=== PATIENT | female | born 1990 | race American Indian/Alaskan Native ===

== ENCOUNTER 2017-02-10 12:25 | Outpatient (CLI) | payer MEDICAID ==
[2017-02-10 12:38] VITALS: BP 122/69
== END 2017-02-10 13:36 | disposition home or self-care (01) ==
LOC: TRG 12:25
PROVIDERS: ATTEND Obstetrics & Gynecology
DX: O47.1 False labor at or after 37 completed weeks of gestation (principal); Z3A.39 39 weeks gestation of pregnancy
CPT/HCPCS: 59025

== ENCOUNTER 2017-02-11 04:03 | Inpatient (IN) | payer MEDICAID ==
[2017-02-11] MEDS ORDERED: PITOCin/NS 20 UNIT/1000ML DRIP IV ONE (05:00)
[2017-02-11] MEDS ORDERED: PITOCin/NS 30 UNIT/500ML IV ONE (05:00)
[2017-02-11] MEDS ORDERED: BOOSTRIX IM ONE (06:00)
[2017-02-11] MEDS ORDERED: STADOL IV PRN (06:16)
[2017-02-11] MEDS: LACTATED RINGERS 1,000 ML IV SCH ×3 (06:27→09:48)
[2017-02-11 07:04] LABS: Hematocrit 34.9 % (30.3-42.9); Hemoglobin 11.5 gm/dl (10.1-14.3); Mean Corpuscular HGB Conc 33 % (30-34); Mean Corpuscular Hemoglobin 27 pg (28-32); Mean Corpuscular Volume 82 fl (79-97); Platelet Count 199 K/mm3 (140-440); Red Blood Count 4.24 M/mm3 (3.65-5.03); Red Cell Distribution Width 16.3 % (13.2-15.2)
[2017-02-11] MEDS ORDERED: fentaNYL-BUPIV 2 MCG/ML-0.125% 200 MCG/100 ML BAG EPIDURAL ONE (08:42)
[2017-02-11] MEDS ORDERED: ePHEDrine SULFATE IV PRN (09:01)
[2017-02-11] MEDS ORDERED: NARCAN 2 MG/2 ML IV PRN (09:01)
--- NOTE | 2017-02-11 09:01 | Anesthesia Consultation ---
Anesthesia Consult and Med Hx Date of service: 02/11/17 - Airway Anesthetic Teeth Evaluation: Good ROM Head & Neck: Adequate Mental/Hyoid Distance: Adequate Mallampati Class: Class II Intubation Access Assessment: Probably Good - Pulmonary Exam CTA: Yes - Cardiac Exam Cardiac Exam: RRR - Pre-Operative Health Status ASA Pre-Surgery Classification: ASA2 Proposed Anesthetic Plan: Epidural - Pulmonary Hx Asthma: No COPD: No Hx Pneumonia: No - Cardiovascular System Hx Hypertension: No - Central Nervous System Hx Seizures: No Hx Psychiatric Problems: No - Endocrine Hx Renal Disease: No Hx End Stage Renal Disease: No Hx Hypothyroidism: No Hx Hyperthyroidism: No - Hematic Hx Anemia: No Hx Sickle Cell Disease: No - Other Systems Hx Alcohol Use: Yes
[2017-02-11] MEDS ORDERED: fentaNYL-BUPIV 2 MCG/ML-0.125% 200 MCG/100 ML BAG EPIDURAL SCH (10:00)
[2017-02-11] MEDS ORDERED: MINERAL OIL PO PRN (11:35)
[2017-02-11] MEDS ORDERED: XYLOCAINE 2% INFILTRATI ONE (11:35)
[2017-02-11] MEDS ORDERED: BRETHINE IVP PRN (11:39)
[2017-02-11] MEDS ORDERED: BRETHINE SUB-Q PRN (11:39)
[2017-02-11] MEDS ORDERED: PITOCin/NS 20 UNIT/1000ML DRIP 20 UNITS/1,000 ML BAG IV SCH (12:00)
[2017-02-11] MEDS ORDERED: PITOCin/NS 30 UNIT/500ML 30,000 MILLIUNITS/500 ML BAG IV ONE (12:00)
--- NOTE | 2017-02-11 14:45 | History and Physical Report ---
History of Present Illness Date of examination: 02/11/17 Date of admission: 02/11/17 05:05 Chief complaint: I'm in labor History of present illness: patient is a 26 year old who presents to L&D in active labor. She has had an uncomplicated course.She entered care at 13 weeks. Past History Past Medical History: no pertinent history Past Surgical History: no surgical history Family/Genetic History: none Social history: single - Obstetrical History Expected Date of Delivery: 02/11/17 Actual Gestation: 40 Week(s) 0 Day(s) : 1 Medications and Allergies Allergies Allergy/AdvReac Type Severity Reaction Status Date / Time No Known Allergies Allergy Unverified 02/10/17 12:39 Home Medications Medication Instructions Recorded Confirmed Last Taken Type Ferrous Sulfate [Iron] 325 mg PO DAILY 02/10/17 02/10/17 1 Day Ago History Complete Caplet 1 tab PO DAILY 02/10/17 02/10/17 1 Day Ago History Active Meds: Active Medications Butorphanol Tartrate (Stadol) 2 mg IV Q2H PRN PRN Reason: Labor Pain Last Admin: 02/11/17 07:04 Dose: 2 mg Lactated Ringer's (Lactated Ringers) 1,000 mls @ 125 mls/hr IV DIRECT JANINA Last Admin: 02/11/17 09:48 Dose: 125 mls/hr Fentanyl/Bupivacaine/Sodium Chlor (Fentanyl-Bupiv 2 Mcg/Ml-0.125%) 200 mcg in 100 mls @ 12 mls/hr EPIDURAL TITR JANINA PRN Reason: Protocol Last Admin: 02/11/17 09:24 Dose: 12 mls/hr Oxytocin/Sodium Chloride (Pitocin/Ns 30 Unit/500ml) 30,000 milliunits in 500 mls @ 4 mls/hr IV DIRECT ONE; 4 MILLIUNITS/MIN PRN Reason: Protocol Stop: 02/16/17 16:59 Last Titration: 02/11/17 13:54 Dose: 16 milliunits/min, 16 mls/hr Oxytocin/Sodium Chloride (Pitocin/Ns 20 Unit/1000ml Drip) 20 units in 1,000 mls @ 125 mls/hr IV DIRECT JANINA Mineral Oil (Mineral Oil) 30 ml PO QHS PRN PRN Reason: Constipation Review of Systems Genitourinary: leakage of fluid, contractions - Vital Signs Vital signs: Vital Signs Temp Pulse Resp BP 97.9 F 75 14 135/79 02/11/17 06:13 02/11/17 06:13 02/11/17 06:13 02/11/17 06:13 Temp Pulse Resp BP Pulse Ox 97.0 F L 106 H 18 139/83 96 02/11/17 14:15 02/11/17 14:41 02/11/17 09:22 02/11/17 14:41 02/11/17 11:26 - Obstetrical FHR: auscultation normal Cervical Dilatation: 4 Cervical Effacement Percentage: 80 station: -1 Uterine Contraction Pattern: Regular Results Result Diagrams: 02/11/17 06:33 Abnormal lab results 02/11/17 Range/Units 06:33 WBC 12.0 H (4.5-11.0) K/mm3 MCH 27 L (28-32) pg RDW 16.3 H (13.2-15.2) % All other labs normal. Assessment and Plan IUP at 40 weeks in active labor. Patient may have epidural Admit. AROM when able. Augment with pitocin if needed. Anticipate .
--- NOTE | 2017-02-11 16:33 | Procedure Note ---
OB Delivery Note - Delivery Date of Delivery: 02/11/17 Surgeon: FRANCHESCA MONTALVO Estimated blood loss: 300cc - Vaginal Delivery presentation: vertex Delivery position: OP Intrapartum events: none Delivery induction: none Delivery augmentation: pitocin Delivery monitor: external FHT, external uterine Route of delivery: Delivery placenta: spontaneous Delivery cord: 3 umbilical vessels Episiotomy: none Delivery laceration: none Anesthesia: epidural Delivery comments: Viable male delivered over intact perineum with 3vc. had spontaneous cry. placed on maternal abdomen. cord clamped and cut when done pulsing. Apgars 8,9. Weight 6 pounds 12 ounces. Placenta delivered spontaneously and intact with 3vc. Patient tolerated procedure well. No lacerations.
[2017-02-11] MEDS ORDERED: ZOFRAN IV PRN (17:55)
[2017-02-11] MEDS ORDERED: PHENERGAN PO PRN (17:55)
[2017-02-11] MEDS ORDERED: TUCKS PAD TP PRN (17:55)
[2017-02-11] MEDS ORDERED: TYLENOL PO PRN (17:55)
[2017-02-11] MEDS ORDERED: MILK OF MAGNESIA PO PRN (17:55)
[2017-02-11] MEDS ORDERED: BENADRYL PO PRN (17:55)
[2017-02-11] MEDS ORDERED: LANSINOH TP PRN (17:55)
[2017-02-11] MEDS ORDERED: NORCO 5/325 PO PRN (17:55)
[2017-02-11] MEDS ORDERED: DULCOLAX PR PRN (17:55)
[2017-02-11] MEDS ORDERED: SODIUM CHLORIDE FLUSH SYRINGE 10 ML IV SCH (17:55)
[2017-02-11] MEDS: COLACE PO SCH (23:30)
[2017-02-11] MEDS: MOTRIN PO SCH (23:31)
[2017-02-12 04:21] LABS: Hematocrit 30.4 % (30.3-42.9); Hemoglobin 10.1 gm/dl (10.1-14.3)
[2017-02-12] MEDS: MOTRIN PO SCH ×4 (05:57→23:35)
[2017-02-12] MEDS ORDERED: BOOSTRIX IM ONE (06:00)
--- NOTE | 2017-02-12 08:48 | Progress Note ---
Assessment and Plan PPD#1 s/p doing well no complaints ambulating well bonding weith baby vss h/h stable O+ no rhogam indicated consider d/c home tomorrow Subjective - Subjective Date of service: 02/12/17 Principal diagnosis: Patient reports: appetite normal, voiding normally, pain well controlled, flatus , ambulating normally : doing well Objective - Vital Signs Latest vital signs: Vital Signs Temp Pulse Resp BP BP Pulse Ox 02/12/17 00:30 98.6 F 71 18 111/77 02/11/17 20:00 98.6 F 72 16 111/78 02/11/17 17:50 98.7 F 93 H 20 117/77 02/11/17 17:20 97.3 F L 18 02/11/17 16:55 106 H 134/71 02/11/17 16:40 109 H 119/70 02/11/17 16:25 111 H 130/76 02/11/17 16:10 114 H 118/81 02/11/17 15:55 120 H 145/107 02/11/17 15:40 116 H 133/84 02/11/17 15:32 115 H 121/91 02/11/17 14:41 106 H 139/83 02/11/17 14:26 100 H 160/93 02/11/17 14:15 97.0 F L 02/11/17 14:10 101 H 139/86 02/11/17 13:55 105 H 124/73 02/11/17 13:40 100 H 118/72 02/11/17 13:25 99 H 117/69 02/11/17 13:11 93 H 128/66 02/11/17 12:56 89 133/80 02/11/17 12:40 90 136/63 02/11/17 12:25 102 H 134/72 02/11/17 12:10 91 H 131/80 02/11/17 11:55 100 H 126/72 02/11/17 11:41 97 H 120/72 02/11/17 11:27 97.0 F L 02/11/17 11:26 97 H 96 02/11/17 11:25 99 H 112/59 02/11/17 11:21 97 H 98 02/11/17 11:16 90 97 02/11/17 11:11 92 H 98 02/11/17 11:10 97 H 118/61 02/11/17 11:06 93 H 98 02/11/17 11:01 94 H 97 02/11/17 10:56 89 96 02/11/17 10:55 90 120/66 02/11/17 10:51 85 97 02/11/17 10:46 93 H 97 02/11/17 10:41 88 124/67 97 02/11/17 10:36 108 H 99 02/11/17 10:31 97 H 99 02/11/17 10:26 94 H 97 02/11/17 10:25 88 109/57 02/11/17 10:21 91 H 96 02/11/17 10:16 95 H 96 02/11/17 10:11 91 H 97 02/11/17 10:10 86 111/56 02/11/17 10:06 94 H 97 02/11/17 10:01 88 96 02/11/17 09:56 93 H 96 02/11/17 09:55 93 H 112/64 02/11/17 09:51 89 97 02/11/17 09:46 101 H 96 02/11/17 09:41 91 H 105/62 94 02/11/17 09:36 102 H 97 02/11/17 09:31 96 H 97 02/11/17 09:26 98 H 97 02/11/17 09:25 96 H 111/56 02/11/17 09:22 106 H 18 111/56 02/11/17 09:21 99 H 97 02/11/17 09:19 100 H 107/53 02/11/17 09:18 97.6 F 18 110/56 02/11/17 09:16 98 H 107/54 96 02/11/17 09:13 99 H 103/53 02/11/17 09:11 95 H 97 02/11/17 09:10 101 H 104/54 02/11/17 09:07 97 H 97/50 02/11/17 09:06 103 H 97 02/11/17 09:04 98 H 100/51 02/11/17 09:01 102 H 106/54 97 02/11/17 08:56 98 H 98 02/11/17 08:51 104 H 96 Intake and Output 02/11/17 02/12/17 02/12/17 23:59 07:59 15:59 Output Total 2300 Balance -2300 Output: Urine 2300 Indwelling Catheter 600 Void 1700 Other: Total, Output Amount 450 # Voids Void 1 - Exam Breasts: Present: normal Cardiovascular: Present: Regular rate, Normal S1 Lungs: Present: Clear to auscultation, Normal air movement Abdomen: Present: normal appearance, soft, normal bowel sounds. Absent: distention, tenderness, guarding Vulva: both: normal Uterus: Present: normal, firm, fundal height below umbilicus. Absent: bogginess , tenderness Extremities: Present: normal Deep Tendon Reflex Grade: Normal +2
[2017-02-12] MEDS ORDERED: PRENATAL VITAMIN PO SCH (10:00)
--- NOTE | 2017-02-12 16:06 | Progress Note ---
Subjective Date of service: 02/12/17 Principal diagnosis: Interval history: 1st day after normal vaginal delivery. Patient is in the bed, comfortable. Pain is well controlled with pain meds. Ambulated well. No residual neurological deficit. No anesthesia complications Objective - Constitutional Vitals: Vital Signs - 12hr 02/12/17 02/12/17 08:56 11:57 Temperature 98.7 F 97.5 F L Pulse Rate 88 87 Respiratory 18 18 Rate Blood Pressure 113/75 104/56 O2 Sat by Pulse 100 98 Oximetry - Labs CBC & Chem 7: 02/12/17 04:00
--- NOTE | 2017-02-12 18:26 | Discharge Summary ---
Providers - Providers Date of Admission: 02/11/17 05:05 Date of discharge: 02/13/17 Attending physician: CHARLIE CM Primary care physician: CHARLIE CM Hospitalization Reason for admission: active labor, IUP at term Delivery: Episiotomy: none Laceration: none Other procedures: none complications: none Discharge diagnosis: IUP at term delivered [place] baby: male Hospital course: Routine PP Condition at discharge: Good Disposition: DC-01 TO HOME OR SELFCARE Plan - Discharge Medications Prescriptions: Ferrous Sulfate 325 mg PO DAILY #60 tablet. Ibuprofen [Motrin] 600 mg PO Q8H PRN #30 tablet PRN Reason: Pain oxyCODONE /ACETAMINOPHEN [Percocet 5/325] 1 tab PO Q6HR PRN #30 tablet PRN Reason: Pain - Provider Discharge Summary Activity: routine, no sex for 6 weeks, no strenuous exercise Diet: routine Instructions: routine Additional instructions: [] Smoking cessation referral if applicable(refer to patient education folder for contact #) [] Refer to [facility] Booklet Call your doctor immediately for: * Fever > 100.5 * Heavy vaginal bleeding ( >1 pad per hour) * Severe persistent headache * Shortness of breath * Reddened, hot, painful area to leg or breast * Drainage or odor from incision. * Keep incision clean and dry at all times and follow doctor's instructions regarding bathing/showering - Follow up plan Follow up: CHARLIE CM MD [Primary Care Provider] - 03/12/17
[2017-02-12] MEDS: COLACE PO SCH (23:34)
[2017-02-13] MEDS: MOTRIN PO SCH ×2 (06:03→12:36)
[2017-02-13] MEDS ORDERED: M-M-R II VACCINE SUB-Q ONE (09:30)
[2017-02-13 11:20] VITALS: BP 132/92
== END 2017-02-13 13:30 | disposition home or self-care (01) | DRG 775 ==
LOC: TRG 04:03 → LD 05:05 → OB 17:52
PROVIDERS: ADMIT Obstetrics & Gynecology; ATTEND Obstetrics & Gynecology
PROC: 10E0XZZ Delivery of Products of Conception, External Approach (ICD-10-PCS; principal; 2017-02-11)
PROC: 3E0R3BZ Introduction of Anesthetic Agent into Spinal Canal, Percutaneous Approach (ICD-10-PCS; principal; 2017-02-11)
PROC: 00HU33Z Insertion of Infusion Device into Spinal Canal, Percutaneous Approach (ICD-10-PCS; 2017-02-11)
PROC: 3E0234Z Introduction of Serum, Toxoid and Vaccine into Muscle, Percutaneous Approach (ICD-10-PCS; 2017-02-13)
DX: O80 Encounter for full-term uncomplicated delivery (principal); Z3A.40 40 weeks gestation of pregnancy; Z37.0 Single live birth; Z23 Encounter for immunization
CPT/HCPCS: 36415; 85014; 85018; 85027; 86850; 86900; 86901; 90471; 90707; 90715; 99211; A6250; G0463; J0595; J2590; J7120

== ENCOUNTER 2021-10-02 06:03 | Inpatient (IN) | payer MEDICAID ==
[2021-10-02] MEDS ORDERED: OXYTOCIN DRIP 30,000 MILLIUNITS/500 ML BAG IV ONE (06:26)
[2021-10-02] MEDS ORDERED: LACTATED RINGERS 1,000 ML ONE (06:26)
[2021-10-02 07:02] LABS: Basophils % (Auto) 0.3 % (0.0-1.8); Eosinophils % (Auto) 0.7 % (0.0-4.3); Hematocrit 35.8 % (30.3-42.9); Hemoglobin 11.7 gm/dl (10.1-14.3); Lymphocytes # (Auto) 2.4 K/mm3 (1.2-5.4); Lymphocytes % (Auto) 35.4 % (13.4-35.0); Mean Corpuscular HGB Conc 33 % (30-34); Mean Corpuscular Volume 83 fl (79-97); Monocytes # (Auto) 0.7 K/mm3 (0.0-0.8); Monocytes % (Auto) 10.8 % (0.0-7.3); Platelet Count 206 K/mm3 (140-440); Red Cell Distribution Width 15.4 % (13.2-15.2)
[2021-10-02] MEDS ORDERED: ACETAMINOPHEN 325 MG TAB PO PRN ×2 (07:12→07:36)
[2021-10-02] MEDS ORDERED: TERBUTALINE 1 MG/1 ML INJ SUB-Q PRN (07:12)
[2021-10-02] MEDS ORDERED: MINERAL OIL 30 ML ORAL LIQD PO PRN (07:12)
[2021-10-02] MEDS ORDERED: fentaNYL 100 MCG/2 ML INJ IV PRN (07:12)
[2021-10-02] MEDS ORDERED: BUTORPHANOL 2 MG/1 ML INJ IV PRN (07:12)
[2021-10-02] MEDS ORDERED: LOPERAMIDE 2 MG CAP PO PRN (07:12)
[2021-10-02] MEDS ORDERED: METHYLERGONOVINE MALEATE 0.2 MG/ML VIAL IM PRN (07:12)
[2021-10-02] MEDS ORDERED: OXYTOCIN 10 UNIT/1 ML INJ IM PRN (07:12)
[2021-10-02] MEDS ORDERED: CARBOPROST TROMETHAMINE 250 MCG/1 ML INJ IM PRN (07:12)
[2021-10-02] MEDS ORDERED: ePHEDrine SULFATE 50 MG/1 ML INJ IV PRN (07:12)
[2021-10-02] MEDS ORDERED: miSOPROStol 200 MCG TAB PR PRN (07:12)
[2021-10-02] MEDS ORDERED: LACTATED RINGERS 1,000 ML IV SCH (07:15)
--- NOTE | 2021-10-02 07:33 | History and Physical Report ---
History of Present Illness Date of examination: 10/02/21 Date of admission: 10/02/21 06:04 Chief complaint: Contractions History of present illness: 31-year-old -0-0-1 at 39+6 weeks who presents in active labor with advanced cervical dilatation. The patient initiated care in the first trimester at [facility]. Her course is complicated by history of silent alpha thalassemia carrier. Patient is GBS negative. Past History Past Medical History: no pertinent history Past Surgical History: no surgical history Social history: - Obstetrical History Expected Date of Delivery: 10/03/21 Actual Gestation: 39 Week(s) 6 Day(s) : 2 Para: 1 Hx # Term Pregnancies: 1 Number of Pregnancies: 0 Spontaneous Abortions: 0 Induced : 0 Number of Living Children: 1 Medications and Allergies Allergies Allergy/AdvReac Type Severity Reaction Status Date / Time No Known Allergies Allergy Verified 10/02/21 06:29 Home Medications Medication Instructions Recorded Confirmed Last Taken Type Ferrous Sulfate [Iron] 325 mg PO DAILY 02/10/17 02/12/17 1 Day Ago History ~02/09/17 Complete Caplet 1 tab PO DAILY 02/10/17 02/12/17 1 Day Ago History ~02/09/17 Ferrous Sulfate 325 mg PO DAILY #60 tablet. 02/12/17 Unknown Rx Ibuprofen [Motrin] 600 mg PO Q8H PRN #30 tablet 02/12/17 Unknown Rx oxyCODONE /ACETAMINOPHEN [Percocet 1 tab PO Q6HR PRN #30 tablet 02/12/17 Unknown Rx 5/325] Active Meds: Active Medications Acetaminophen (Acetaminophen 325 Mg Tab) 650 mg PO Q4H PRN PRN Reason: Pain, Mild (1-3) Butorphanol Tartrate (Butorphanol 2 Mg/1 Ml Inj) 1 mg IV Q2H PRN PRN Reason: Pain, Moderate(4-6) LABOR PAIN Carboprost Tromethamine (Carboprost Tromethamine 250 Mcg/1 Ml Inj) 250 mcg IM ONCE PRN PRN Reason: Uterine Bleeding Ephedrine Sulfate (Ephedrine Sulfate 50 Mg/1 Ml Inj) 10 mg IV Q2M PRN PRN Reason: Hypotension Fentanyl (Fentanyl 100 Mcg/2 Ml Inj) 100 mcg IV Q2H PRN PRN Reason: Pain,Severe (7-10) LABOR PAIN Oxytocin/Sodium Chloride (Pitocin/Ns 30 Unit/500ml) 30 units in 500 mls @ 2 mls/hr IV TITR JANINA; Protocol Lactated Ringer's (Lactated Ringers) 1,000 mls @ 125 mls/hr IV DIRECT JANINA Lidocaine (Lidocaine (2%) 20 Mg/1 Ml Vial 20 Ml Mdv) 20 ml INFILTRATI ONCE ONE Stop: 10/02/21 08:01 Loperamide HCl (Loperamide 2 Mg Cap) 2 mg PO ONCE PRN PRN Reason: give with Hemabate Methylergonovine Maleate (Methylergonovine Maleate 0.2 Mg/Ml Vial) 0.2 mg IM ONCE PRN PRN Reason: Uterine Bleeding Mineral Oil (Mineral Oil 30 Ml Oral Liqd) 30 ml PO QHS PRN PRN Reason: Constipation Misoprostol (Misoprostol 200 Mcg Tab) 800 mcg [place] ONCE PRN PRN Reason: Uterine Bleeding Oxytocin (Oxytocin 10 Unit/1 Ml Inj) 10 unit IM ONCE PRN PRN Reason: Uterine Bleeding Terbutaline Sulfate (Terbutaline 1 Mg/1 Ml Inj) 0.25 mg SUB-Q ONCE PRN PRN Reason: Hyperstimulation/Hypertonicity Review of Systems All systems: negative Genitourinary: pelvic pain, contractions - Vital Signs Vital signs: Vital Signs Temp Pulse Resp 98.2 F 77 20 10/02/21 06:15 10/02/21 06:15 10/02/21 06:15 Temp Pulse Resp BP Pulse Ox 98.2 F 71 20 110/64 10/02/21 06:15 10/02/21 07:20 10/02/21 06:15 10/02/21 07:20 - Physical Exam Breasts: Positive: deferred Cardiovascular: Regular rate Lungs: Positive: Clear to auscultation Abdomen: Positive: normal appearance Results Result Diagrams: 10/02/21 06:50 Abnormal lab results 10/02/21 Range/Units 06:50 MCH 27 L (28-32) pg RDW 15.4 H (13.2-15.2) % Lymph % (Auto) 35.4 H (13.4-35.0) % [place] % (Auto) 10.8 H (0.0-7.3) % All other labs normal. Assessment and Plan - Patient Problems (1) Active labor at term Current Visit: Yes Status: Acute Plan to address problem: Admit to labor and delivery
[2021-10-02] MEDS ORDERED: LANOLIN/ZINC/DIMETHICONE (LANSINOH) 7 GM TP PRN (07:35)
[2021-10-02] MEDS ORDERED: MAGNESIUM HYDROXIDE (MOM) ORAL LIQD UDC PO PRN (07:35)
[2021-10-02] MEDS ORDERED: WITCH HAZEL/ GLYCERIN PAD TP PRN (07:35)
[2021-10-02] MEDS ORDERED: PROMETHAZINE 25 MG RECT SUPP PR PRN (07:35)
[2021-10-02] MEDS ORDERED: diphenhydrAMINE 25 MG CAP PO PRN (07:35)
[2021-10-02] MEDS ORDERED: PROMETHAZINE 25 MG TAB PO PRN (07:35)
[2021-10-02] MEDS ORDERED: ONDANSETRON 4 MG/2 ML INJ IV PRN (07:35)
--- NOTE | 2021-10-02 07:35 | Procedure Note ---
OB Delivery Note - Delivery Date of Delivery: 10/02/21 Surgeon: CHARLIE CM Estimated blood loss: 100cc - Vaginal Delivery presentation: vertex Delivery position: OA Intrapartum events: precipitous labor- <3hr Delivery monitor: external FHT, external uterine Route of delivery: Delivery placenta: spontaneous Episiotomy: none Delivery laceration: none Anesthesia: none Delivery comments: The patient was admitted with advanced cervical dilatation of 9 cm and quickly advanced to deliver a liveborn male with Apgars of 9 and 9 weight 7 pounds 2 ounces. The delivery was attended by the nursing staff. The placenta delivered spontaneously intact with three-vessel cord. No lacerations were noted. Estimated blood loss 100 mL. - Infant A at 1 minute: 9 at 5 minutes: 9 Infant Gender: Male (weight 7lbs 2oz)
[2021-10-02] MEDS ORDERED: HYDROcodone/ACETAMINOPHEN 5-325 MG TAB PO PRN (07:36)
[2021-10-02] MEDS ORDERED: LIDOCAINE (2%) 20 MG/1 ML VIAL 20 ML MDV INFILTRATI ONE (08:00)
[2021-10-02] MEDS ORDERED: OXYTOCIN DRIP 30 UNITS/500 ML BAG IV SCH (08:00)
[2021-10-02] MEDS: IBUPROFEN 800 MG TAB PO SCH (21:23)
[2021-10-02 21:30] LABS: Hematocrit 35.8 % (30.3-42.9); Hemoglobin 11.7 gm/dl (10.1-14.3)
[2021-10-03] MEDS: IBUPROFEN 800 MG TAB PO SCH ×2 (04:26→11:18)
--- NOTE | 2021-10-03 16:27 | Progress Note ---
Assessment and Plan - Patient Problems (1) Active labor at term Current Visit: Yes Status: Acute Plan to address problem: Patient doing well Discharge home Subjective - Subjective Date of service: 10/03/21 Interval history: Patient is doing well. She denies any significant pain or symptoms. Patient reports: appetite normal, voiding normally, pain well controlled [place]: doing well Objective - Vital Signs Latest vital signs: Vital Signs Temp Pulse Resp BP BP Pulse Ox Pulse Ox 10/03/21 08:04 98.1 F 82 20 108/66 98 10/03/21 08:00 99 10/03/21 01:00 98.2 F 82 20 105/60 97 10/02/21 21:00 98 10/02/21 20:00 97.8 F 71 18 102/61 98 Intake and Output 10/03/21 10/03/21 10/03/21 06:59 14:59 22:59 Intake Total 600 Balance 600 Intake: Oral 600 Other: Total, Intake Amount 240 # Voids Void 1
--- NOTE | 2021-10-03 16:27 | Discharge Summary ---
Providers - Providers Date of Admission: 10/02/21 06:04 Date of discharge: 10/03/21 Attending physician: CHARLIE CM Primary care physician: CHARLIE CM Hospitalization Reason for admission: active labor Delivery: Discharge diagnosis: IUP at term delivered [place] baby: male Hospital course: The patient was admitted in active labor had a precipitous delivery of a liveborn male infant. Her course was uneventful. Condition at discharge: Good Disposition: 01 HOME / SELF CARE / HOMELESS - Discharge Diagnoses (1) Active labor at term Status: Acute Plan - Discharge Medications Prescriptions: Ibuprofen [Motrin] 800 mg PO Q8HR PRN #30 tablet PRN Reason: Pain , Severe (7-10) HYDROcodone/APAP 5-325 [[place] 5/325] 1 each PO Q6HR PRN #15 tablet PRN Reason: Pain - Provider Discharge Summary Activity: no sex for 6 weeks, no heavy lifting 4 weeks, no strenuous exercise Diet: routine Instructions: routine Additional instructions: [] Smoking cessation referral if applicable(refer to patient education folder for contact #) [] Refer to [facility] Booklet Call your doctor immediately for: * Fever > 100.5 * Heavy vaginal bleeding ( >1 pad per hour) * Severe persistent headache * Shortness of breath * Reddened, hot, painful area to leg or breast * Schedule visit in 4 weeks - Follow up plan Forms: [facility] Discharge Summary
[2021-10-03 16:29] VITALS: BP 114/71
== END 2021-10-03 17:33 | disposition home or self-care (01) | DRG 775 ==
LOC: TRG 06:03 → LD 06:03 → TRG 07:12 → OB 11:07
PROVIDERS: ADMIT Obstetrics & Gynecology; ATTEND Obstetrics & Gynecology
PROC: 10E0XZZ Delivery of Products of Conception, External Approach (ICD-10-PCS; principal; 2021-10-02)
DX: O62.3 Precipitate labor (principal); Z37.0 Single live birth; Z3A.39 39 weeks gestation of pregnancy; Z20.822 Contact with and (suspected) exposure to COVID-19
CPT/HCPCS: 36415; 85014; 85018; 85025; 86592; 86850; 86900; 86901; G0378; U0003